=== PATIENT | male | born 1965 | race American Indian/Alaskan Native ===

== ENCOUNTER 2016-08-26 10:37 | Emergency (ER) | payer SELFPAY ==
--- NOTE | 2016-08-26 11:18 | Emergency Department Report ---
Chief Complaint: Abdominal Pain Stated Complaint: ABD AND HAND PAIN Time Seen by Provider: 08/26/16 11:15 - HPI History of Present Illness: PT states he drops things from both hands x 3 weeks. PT states he dropped a cup this morning. + n/v - ROS Review of Systems: + n/v -d - fever + back pain - neck pain - Exam Physical Exam: pt looks well, non toxic abd soft, LUQ abd tenderness MSE screening note: Focused history and physical exam performed. Due to findings the following was ordered: labs ED Disposition for MSE Condition: Stable
[2016-08-26 11:19] VITALS: BP 158/102
[2016-08-26 11:56] LABS: Basophils % (Auto) 0.7 % (0.0-1.8); Hematocrit 41.5 % (35.5-45.6); Hemoglobin 13.5 gm/dl (11.8-15.2); Mean Corpuscular HGB Conc 33 % (32-34); Mean Corpuscular Hemoglobin 27 pg (28-32); Mean Corpuscular Volume 84 fl (84-94); Platelet Count 247 K/mm3 (140-440); Red Blood Count 4.95 M/mm3 (3.65-5.03); Red Cell Distribution Width 13.7 % (13.2-15.2); White Blood Count 6.2 K/mm3 (4.5-11.0)
[2016-08-26 12:13] LABS: Alanine Aminotransferase 15 units/L (7-56); Albumin/Globulin Ratio 1.5 %; Alkaline Phosphatase 71 units/L (35-129); Anion Gap 16 mmol/L; Blood Urea Nitrogen 12 mg/dL (9-20); Calcium 9.1 mg/dL (8.4-10.2); Carbon Dioxide 24 mmol/L (22-30); Chloride 104.6 mmol/L (98-107); Glucose 93 mg/dL (75-100); Lipase 39 units/L (13-60); Potassium 4.1 mmol/L (3.6-5.0); Sodium 140 mmol/L (137-145); Total Protein 6.7 g/dL (6.3-8.2)
[2016-08-26 12:26] LABS: Bilirubin,Urine NEG (Negative); Blood,Urine NEG (Negative); Ketones,Urine NEG (Negative); Leukocyte Esterase,Urine NEG (Negative); Nitrite,Urine NEG (Negative); Protein,Urine <15 mg/dL mg/dL (Negative); Urobilinogen,Urine < 2.0 mg/dL (<2.0); WBC,Urine < 1.0 /HPF (0.0-6.0)
[2016-08-26] MEDS ORDERED: MORPHINE IV ONE (18:43)
[2016-08-26] MEDS ORDERED: ZOFRAN IV ONE (18:43)
--- NOTE | 2016-08-26 18:53 | Emergency Department Report ---
HPI - General Chief Complaint: Abdominal Pain Time Seen by Provider: 08/26/16 11:15 - HPI HPI: Room 26 The patient is a 50-year-old male presenting with a chief complaint of abdominal pain. The patient states for the past 5-6 days he's had abdominal pain nausea vomiting and diarrhea. Patient states his cramping abdominal pain associated with nausea vomiting and diarrhea. The patient states diarrhea resolved 2 days ago however his nausea and vomiting persist. The patient currently gives his abdominal pain a score of 6/10. Patient also states for the past 3 weeks she has been dropping things from both hands frequently. 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 Location: [see above] Duration: [see above] Quality: Cramping Severity:6/10 Modifying factors: [see above] Context: [see above] Mode of transportation: [not driving] ED Past Medical Hx - Past Medical History Previous Medical History?: No - Surgical History Past Surgical History?: No - Family History Family history: no significant - Social History Smoking Status: Current Every Day Smoker (one pack per day) Substance Use Type: None (denies illicit drug use) - Medications Home Medications: Home Medications Medication Instructions Recorded Confirmed Last Taken Type Diphenoxylate/Atropine [Lomotil] 1 tab PO QID PRN #20 tablet 08/26/16 Unknown Rx HYDROcodone/APAP 5-325 [[place] 1 - 2 each PO Q6HR PRN #14 tablet 08/26/16 Unknown Rx 5/325] Promethazine [Phenergan TAB] 25 mg PO Q6HR PRN #20 tab 08/26/16 Unknown Rx ED Review of Systems ROS: Stated complaint: ABD AND HAND PAIN Other details as noted in HPI Comment: All other systems reviewed and negative Constitutional: denies: chills, fever Eyes: denies: eye pain, eye discharge, vision change ENT: denies: ear pain, throat pain Respiratory: denies: cough, shortness of breath, wheezing Cardiovascular: denies: chest pain, palpitations Gastrointestinal: abdominal pain, nausea, vomiting, diarrhea Genitourinary: denies: urgency, dysuria Musculoskeletal: arthralgia, myalgia. denies: back pain, joint swelling Skin: denies: rash, lesions Neurological: paresthesias Psychiatric: denies: anxiety, depression Hematological/Lymphatic: denies: easy bleeding, easy bruising Physical Exam - Physical Exam Vital Signs: Vital Signs 08/26/16 11:16 Temperature 98.2 F Pulse Rate 74 Respiratory 20 Rate Blood Pressure 158/102 O2 Sat by Pulse 99 Oximetry Physical Exam: GENERAL: The patient is well-developed well-nourished male lying on stretcher not appearing to be in acute distress. [] HEENT: Normocephalic. Atraumatic. Extraocular motions are intact. Patient has moist mucous membranes. NECK: Supple. Trachea midline CHEST/LUNGS: Clear to auscultation. There is no respiratory distress noted. HEART/CARDIOVASCULAR: Regular. There is no tachycardia. There is no gallop rub or murmur. ABDOMEN: Abdomen is soft, nontender. Patient has normal bowel sounds. There is no abdominal distention. SKIN: There is no rash. There is no edema. There is no diaphoresis. NEURO: The patient is awake, alert, and oriented. The patient is cooperative. The patient has no focal neurologic deficits. The patient has normal speech. Cranial nerves II through XII grossly intact, no drift. [employer] 5+/5 bilaterally. MUSCULOSKELETAL: Positive Phalen's test. There is no evidence of acute injury. ED Course Vital Signs 08/26/16 11:16 Temperature 98.2 F Pulse Rate 74 Respiratory 20 Rate Blood Pressure 158/102 O2 Sat by Pulse 99 Oximetry ED Medical Decision Making - Lab Data Result diagrams: 08/26/16 11:38 08/26/16 11:38 Laboratory Tests 08/26/16 08/26/16 08/26/16 11:38 11:38 11:46 WBC 6.2 RBC 4.95 Hgb 13.5 Hct 41.5 MCV 84 MCH 27 L MCHC 33 RDW 13.7 Plt Count 247 Lymph % (Auto) 30.6 [place] % (Auto) 8.1 H Eos % (Auto) 2.0 Baso % (Auto) 0.7 Lymph # 1.9 [place] # 0.5 Eos # 0.1 Baso # 0.0 Seg Neutrophils % 58.6 Seg Neutrophils # 3.6 Sodium 140 Potassium 4.1 Chloride 104.6 Carbon Dioxide 24 Anion Gap 16 BUN 12 Creatinine 1.0 Estimated GFR > 60 BUN/Creatinine Ratio 12.00 Glucose 93 Calcium 9.1 Total Bilirubin 0.20 AST 13 ALT 15 Alkaline Phosphatase 71 Total Creatine Kinase CK-MB (CK-2) CK-MB (CK-2) Rel Index Troponin T Total Protein 6.7 Albumin 4.0 Albumin/Globulin Ratio 1.5 Lipase 39 Urine Color Yellow Urine Turbidity Clear Urine pH 5.0 Ur Specific [place] 1.012 Urine Protein <15 mg/dl Urine Glucose (UA) Neg Urine Ketones Neg Urine Blood Neg Urine Nitrite Neg Urine Bilirubin Neg Urine Urobilinogen < 2.0 Ur Leukocyte Esterase Neg Urine WBC (Auto) < 1.0 Urine RBC (Auto) 1.0 U Epithel Cells (Auto) < 1.0 08/26/16 18:44 WBC RBC Hgb Hct MCV MCH MCHC RDW Plt Count Lymph % (Auto) [place] % (Auto) Eos % (Auto) Baso % (Auto) Lymph # [place] # Eos # Baso # Seg Neutrophils % Seg Neutrophils # Sodium Potassium Chloride Carbon Dioxide Anion Gap BUN Creatinine Estimated GFR BUN/Creatinine Ratio Glucose Calcium Total Bilirubin AST ALT Alkaline Phosphatase Total Creatine Kinase 93 CK-MB (CK-2) 1.3 CK-MB (CK-2) Rel Index 1.3 Troponin T < 0.010 Total Protein Albumin Albumin/Globulin Ratio Lipase Urine Color Urine Turbidity Urine pH Ur Specific [place] Urine Protein Urine Glucose (UA) Urine Ketones Urine Blood Urine Nitrite Urine Bilirubin Urine Urobilinogen Ur Leukocyte Esterase Urine WBC (Auto) Urine RBC (Auto) U Epithel Cells (Auto) - EKG Data -: EKG Interpreted by Wi EKG shows normal: sinus rhythm Rate: normal - EKG Data When compared to previous EKG there are: previous EKG unavailable Interpretation: nonspecific ST-T wave mindy (biphasic T-wave in lead V5) - Radiology Data Radiology results: report reviewed (CT head, CT abdomen and pelvis), image reviewed (CT head, CT abdomen and pelvis) CT head (read by radiologist)-no acute intracranial findings. Chronic ischemic changes suspected. CT abdomen and pelvis (read by radiologist)-probable hepatic cyst. Punctate, nonobstructing right renal calcification. Sigmoid colon diverticulosis and findings suggestive of constipation. - Differential Diagnosis pancreatitis, gastroenteritis, CVA, carpal tunnel syndrome, ACS Critical care attestation.: If time is entered above; I have spent that time in minutes in the direct care of this critically ill patient, excluding procedure time. ED Disposition Clinical Impression: Abdominal pain, Nausea vomiting and diarrhea, Carpal tunnel syndrome, bilateral , Gastroenteritis Disposition: DC-01 TO HOME OR SELFCARE Is pt being admited?: No Does the pt Need Aspirin: No Condition: Stable Instructions: Acute Nausea and Vomiting (ED), Abdominal Pain (ED) Additional Instructions: Return to the emergency department immediately should you develop worsening symptoms, fever, inability to tolerate food or liquid or any other concerns. Prescriptions: Diphenoxylate/Atropine [Lomotil] 1 tab PO QID PRN #20 tablet PRN Reason: Diarrhea HYDROcodone/APAP 5-325 [[place] 5/325] 1 - 2 each PO Q6HR PRN #14 tablet PRN Reason: Pain Promethazine [Phenergan TAB] 25 mg PO Q6HR PRN #20 tab PRN Reason: Nausea Referrals: PRIMARY CARE, [Primary Care Provider] - 3-5 Days [facility] [Outside] - 3-5 Days ENRICO DIALLO MD [Staff Physician] - 3-5 Days (Dr. Diallo is a food counselor. Please follow up with him if your symptoms persist) YUDITH CRAIG MD [Staff Physician] - 3-5 Days (Dr. Craig is an orthopedic surgeon. Please follow up with him for further evaluation of your wrist pain) Time of Disposition: 20:23
[2016-08-26 19:37] LABS: Creatine Kinase MB 1.3 ng/mL (0.0-4.0)
[2016-08-26 19:38] LABS: Creatine Kinase 93 units/L (55-170)
--- NOTE | 2016-08-26 20:04 | Cat Scan Report ---
FINAL REPORT EXAM: CT HEAD/BRAIN WO CON HISTORY: dropping things from hands 3 weeks TECHNIQUE: Noncontrast CT axial images of the brain. PRIORS: None. FINDINGS: No parenchymal mass, mass effect, hemorrhage, midline shift or hydrocephalus. No evidence of acute cortical infarct. No abnormal, extra-axial fluid or air collection. Mild, patchy low density in the periventricular and subcortical white matter is nonspecific, but may relate to chronic small vessel ischemic change. Possible old lacunar infarct changes in the left pontine region. Osseous calvarium grossly intact. Remote posttraumatic and postsurgical changes involving right orbit. IMPRESSION: 1. No acute intracranial findings. 2. Chronic ischemic changes suspected.
--- NOTE | 2016-08-26 20:16 | Cat Scan Report ---
FINAL REPORT EXAM: CT ABDOMEN PELVIS W CON HISTORY: diffuse abdominal pain nausea vomiting diarrhea TECHNIQUE: Spiral CT scanning of the abdomen and pelvis after the uneventful administration of IV contrast. Multiplanar reformations. 100 mL Omnipaque IV. PRIORS: None. FINDINGS: Abdomen: Visualized lung bases show mild, dependent atelectasis bilaterally. Calcified granuloma in the right lower lobe. Mild cardiomegaly. Prominent lymph node adjacent to left diaphragmatic allison measuring 9 mm in short axis dimension may be reactive. More shotty lymph nodes scattered along the retroperitoneum. No radiopaque gallstones. Multiple small and round, probable cysts scattered in right and left hepatic lobes, largest measuring approximately 1.4 cm in the left lobe. Spleen without significant abnormality. Pancreas without significant abnormality. Punctate calcification noted in the right kidney upper pole measuring 1-2 mm, without significant hydronephrosis. Probable tiny left renal cyst. Adrenal glands without significant abnormality. Pelvis: Mild diverticular change in the sigmoid colon. Remainder of visualized bowel grossly unremarkable, with moderate-large amount of retained stool. Appendix within normal limits. No significant free peritoneal fluid or discrete abscess. Abdominal aorta non-aneurysmal. Chronic pars defects or spondylolysis in the right L5-S1 level. Degenerative changes in thoracolumbar spine. IMPRESSION: 1. Probable hepatic cysts. 2. Punctate, nonobstructing right renal calcification. 3. Sigmoid colon diverticulosis, and findings suggestive of constipation.
--- NOTE | 2016-08-26 20:18 | Admit Criteria Form ---
Admission Criteria Documentation: ABDOMINAL PAIN Clinical Indications for Admission to Inpatient Care (Place 'X' for any and all applicable criteria): Admission is indicated for ANY ONE of the following(1)(2)(3)(4)(5): [X]I. Inpatient admission required rather than observation care (Also use Abdominal Pain: Observation Care, as appropriate) because of ANY ONE of the following: [ ]a) Severe pain requiring acute inpatient management [ X]b) Identification of etiology/finding that requires inpatient care (eg, aortic dissection, free air) [ ]c) Absent bowel sounds with complete ileus(6) [ ]d) Suspected toxic megacolon [ ]e) Severe electrolyte abnormalities requiring inpatient care [ ]f) High fever or infection requiring inpatient admission as indicated by ANY ONE of following(7)(8): [ ] i) Appropriate outpatient or observational care antimicrobial treatment unavailable, not effective, or not feasible [ ] ii) Documented bacteremia [ ] iii) Temperature > 104.9 degrees F (oral) [ ] iv) T >103.1 F (oral) or < 96.8 F(rectal) that does not respond to all emergency treatment measures [ ]g) Signs of intestinal obstruction [B] [ ]h) Hemodynamic instability [ ]i) IV fluid to replace significant ongoing losses (greater than 3 L/m2 per day) (12)(13) [ ]j) Percutaneous or open drainage (eg, abscess, biliary tract ) procedures [ ]k) Parenteral nutrition regimen that must be implemented on inpatient basis [ ]l) Other condition,treatment or monitoring requiring inpatient admission. [ ]II. Peritoneal signs present [ ]III. Surgery needed that cannot be performed on an ambulatory basis. [ ]IV. Evaluation requires patient to not eat or drink for extended period ( eg, more than 24 hours). [ ]V. Contraindications and/or Inappropriate clinical situations for Observational Care in patients with abdominal pain, when ANY ONE of the following is required: [ ]a) Thorough evaluation is required to prevent catastrophic events due to delays in diagnosing (e.g.Mesenteric ischemia) 1,3 [ ]b) Patient with severe pathology or with chronic symptoms unlikely to improve in the ED stay (3) [ ]. General contraindications and/or Inappropriate clinical situations for Observational Care in patients with abdominal pain, when ANY ONE of the following is required: [ ]a) Prediction of prolongation of LOS based on ANY ONE of the following may be considered as a contraindication for observational care 2, 3, 4, 5, 6, 7, 8, 9, 10, 11 [ ]i) Age > 65 yrs. [ ]ii) Patient arriving by ambulance [ ]iii) Patient with high acuity [ ]iv) Patient requiring vital sign monitoring [ ]v) Patient on IV medication [ ]b) Systolic blood pressures 180mmHg 3,12 [ ]c) Patient with altered mental status including delirium and other alteration of consciousness, (3) [ ]d) Patient whose discharge disposition will be to a [facility] home or rehabilitation home should not be managed in Emergency Department Observation Unit. CMS rule requires 3 days hospital stay before such placement.3,13 [ ]e) Patient with failure to thrive due to broad array of etiologies 3,16,17 [ ]f) Inability to ambulate 3,14 Extended stay beyond goal length of stay may be needed for(2)(3): [ ]a) Persistent abdominal pain with suspected intra-abdominal process [ ]b) Diagnosed condition requiring continued stay (e.g., pancreatitis, complicated diverticulitis) [ ]c) Surgery (e.g., colectomy) The original [facility] content created by [employer] has been revised. The portions of the content which have been revised are identified through the use of italic text or in bold, and [facility] has neither reviewed nor approved the modified material.All other unmodified content is copyright [facility]. Please see references footnoted in the original [facility] edition 2016 Admission Criteria Met: Yes
== END 2016-08-26 21:05 | disposition home or self-care (01) ==
LOC: ED 10:37
DX: K52.9 Noninfective gastroenteritis and colitis, unspecified (principal); R10.9 Unspecified abdominal pain; R11.2 Nausea with vomiting, unspecified; R19.7 Diarrhea, unspecified; G56.03 Carpal tunnel syndrome, bilateral upper limbs
CPT/HCPCS: 29125; 36415; 70450; 74177; 80053; 81001; 82550; 82553; 83690; 84484; 85025; 93005; 93010; 96374; 96375; 99284; J2270; J2405; Q9967

== ENCOUNTER 2017-02-05 17:46 | Emergency (ER) | payer OTHER ==
[2017-02-05] MEDS ORDERED: CATAPRES ONE (18:13)
[2017-02-05] MEDS ORDERED: CATAPRES PO ONE (18:14)
[2017-02-05 18:36] LABS: Hematocrit 46.2 % (35.5-45.6); Hemoglobin 14.9 gm/dl (11.8-15.2); Mean Corpuscular HGB Conc 32 % (32-34); Mean Corpuscular Hemoglobin 27 pg (28-32); Mean Corpuscular Volume 84 fl (84-94); Platelet Count 285 K/mm3 (140-440); Red Blood Count 5.49 M/mm3 (3.65-5.03); Red Cell Distribution Width 13.3 % (13.2-15.2); White Blood Count 6.4 K/mm3 (4.5-11.0)
[2017-02-05 19:00] LABS: Alanine Aminotransferase 14 units/L (7-56); Albumin 4.7 g/dL (3.9-5); Albumin/Globulin Ratio 1.8 %; Alkaline Phosphatase 75 units/L (35-129); Anion Gap 18 mmol/L; BUN/Creatinine Ratio 11; Blood Urea Nitrogen 10 mg/dL (9-20); Calcium 9.4 mg/dL (8.4-10.2); Carbon Dioxide 27 mmol/L (22-30); Chloride 98.8 mmol/L (98-107); Glucose 102 mg/dL (75-100); Sodium 140 mmol/L (137-145); Total Protein 7.3 g/dL (6.3-8.2)
[2017-02-05 19:03] LABS: Bilirubin,Urine NEG (Negative); Blood,Urine NEG (Negative); Ketones,Urine NEG (Negative); Leukocyte Esterase,Urine NEG (Negative); Mucus,Urine 2+ /HPF; Nitrite,Urine NEG (Negative); Protein,Urine <15 mg/dL mg/dL (Negative); Urobilinogen,Urine < 2.0 mg/dL (<2.0)
[2017-02-05 20:25] VITALS: BP 172/98
== END 2017-02-06 02:11 | disposition left against medical advice (07) ==
LOC: ED 17:46
DX: R11.2 Nausea with vomiting, unspecified (principal); Z53.21 Procedure and treatment not carried out due to patient leaving prior to being seen by health care provider
CPT/HCPCS: 36415; 80053; 81001; 85027

== ENCOUNTER 2020-07-20 17:16 | Emergency (ER) | payer SELFPAY ==
[2020-07-20 19:34] VITALS: BP 199/137
== END 2020-07-20 20:00 | disposition left against medical advice (07) ==
LOC: ED 17:16
DX: J00 Acute nasopharyngitis [common cold] (principal); Z53.21 Procedure and treatment not carried out due to patient leaving prior to being seen by health care provider